=== PATIENT | female | born 1980 | race Caucasian/White ===

== ENCOUNTER 2018-07-23 12:53 | Inpatient (IN) | payer MEDICAID, OTHER ==
[~2018-07-23] VITALS: Ht 172.7 cm; Wt 117.7 kg
[~2018-07-23 12:53] MED LIST: MIDAZOLAM 1 MG/ML, 5ML ONE; PROPOFOL 10 MG/ML, 100ML IV ONE; VECURONIUM 10 MG ONE
--- NOTE | 2018-07-23 12:56 | NUR ---
[facility] CALLED @ [id number]
[2018-07-23] MEDS ORDERED: ASPIRIN 325 MG TABLET PO ONE (13:10)
--- NOTE | 2018-07-23 13:11 | NUR ---
BIB FROM [place] POST CARDIAC ARREST FROM [facility] TODAY. WAS TAKEN TO HOSPITAL IN [place] AND TRANSFERRED TO [facility]. PT HAS 8.0 ET TUBE 24@ THE LIP W/ ETCO2 AT [address] CALVERT IN [address]ACE. NG TUBE IN PLACE. RESTRAINTS IN PLACE. PT PROVIDED W/ VECURONIUM AND VERSED ON ARRIVAL. STEMI CALLED. MONITORS IN PLACE. [address] BILAT UE AND ONE IO TO L PROXIMAL SHOULDER. PT WAS FOUND DOWN AND STATES TO BE IN [place] THEN INTO V FIB. SHOCKED 3 TIMES AND GOT ROSC. AT [facility] PT WENT INTO V FIB SHOCKED AGAIN GOT ROSC. NOW HAS PINK FROTHY SPUTUM. PER SEMSA EKG SHOWS POSSIBLE ELEVATIONS IN LEADS 2,3 AND AVF. GIVEN 0.4 MG ATROPINE, STARTED ON LEVOPHED AND GIVEN [facility]. HX ETOH AND HTN.
--- NOTE | 2018-07-23 13:15 | NUR ---
ATTEMPTED TO HAVE PT OFF LEVOPHED. PT DROPPED FROM SBP 140 TO 85 IN 4 MIN. PT PLACED ON LEVOPHED AGAIN.
--- NOTE | 2018-07-23 13:21 | NUR ---
DR ZAMORA AT BEDSIDE.
[2018-07-23 13:22] LABS: MEAN CORPUSCULAR HGB CONC 32.5 g/dL (32.4-35.8); MEAN CORPUSCULAR VOLUME 92.2 fL (80-100); MEAN PLATELET VOLUME 9.1 fL (7.4-10.4); PLATELET COUNT 328 x10^3/uL (130-400); RED BLOOD COUNT 5.06 x10^6/uL (3.82-5.3)
--- NOTE | 2018-07-23 13:27 | NUR ---
CARDS AT BEDSIDE.
[2018-07-23] MEDS ORDERED: POLYETHYLENE GLYCOL 17 GM PACKET PO PRN (13:30)
[2018-07-23] MEDS ORDERED: ACETAMINOPHEN 325 MG TABLET PO PRN (13:30)
[2018-07-23] MEDS ORDERED: MIDAZOLAM 1 MG/ML, 2ML IVPush PRN (13:30)
[2018-07-23] MEDS ORDERED: BISACODYL 10 MG SUPP PR PRN (13:30)
[2018-07-23] MEDS ORDERED: OXYcodone IR 5MG TABLET PO PRN (13:30)
[2018-07-23] MEDS ORDERED: LABETALOL 5MG/ML, 20ML IVPush PRN (13:30)
[2018-07-23] MEDS ORDERED: morphine SULFATE 10 MG/ML, 1ML IVPush PRN (13:30)
[2018-07-23] MEDS ORDERED: VECURONIUM 10 MG IVPush ONE ×2 (13:30→16:30)
[2018-07-23] MEDS ORDERED: ONDANSETRON ODT 4 MG PO PRN (13:30)
[2018-07-23] MEDS ORDERED: ENALAPRILAT 1.25 MG/ML, 2ML IVPush PRN (13:30)
[2018-07-23] MEDS ORDERED: ONDANSETRON 2MG/ML, 2ML IVPush PRN (13:30)
[2018-07-23] MEDS ORDERED: LORazepam 2 MG/ML, 1ML IVPush PRN (13:30)
[2018-07-23 13:31] LABS: INTERNATIONAL NORMALIZED RATIO 1.05 (0.93-1.1)
--- NOTE | 2018-07-23 13:34 | NUR ---
ERP DR. JEFFRIES AT BEDSIDE INSERTING CENTRAL LINE.
[2018-07-23] MEDS ORDERED: MIDAZOLAM 1 MG/ML, 5ML ONE (13:37)
[2018-07-23] MEDS ORDERED: FENTANYL PF 100 MCG/2ML ONE (13:37)
[2018-07-23] MEDS ORDERED: TICAGRELOR 90 MG TABLET ONE (13:38)
[2018-07-23] MEDS ORDERED: LIDOCAINE 2%, 20ML ONE (13:38)
[2018-07-23] MEDS ORDERED: NITROGLYCERIN 5 MG/ML, 10ML ONE (13:38)
[2018-07-23] MEDS ORDERED: BIVALIRUDIN 250 MG ONE (13:38)
[2018-07-23 13:40] LABS: ALANINE AMINOTRANSFERASE 309 U/L (12-78); ALBUMIN 3.6 g/dL (3.4-5.0); ANION GAP 7 mmol/L (5-15); CALCIUM 7.5 mg/dL (8.5-10.1); CHLORIDE 109 mmol/L (98-107); CREATININE 0.98 mg/dL (0.55-1.02)
[2018-07-23 13:41] LABS: MD YES
[2018-07-23 13:42] LABS: <PLATELET ESTIMATE> ADEQUATE; <PLT MORPHOLOGY> NORMAL PLT MORPH; <RBC MORPHOLOGY> NORMAL; BAND#(MANUAL) 2.78 x10^3/uL; BANDS%(MANUAL) 8 % (0-7); LYMPH#(MANUAL) 1.04 x10^3/uL (1-3.4); LYMPHS% (MANUAL) 3 % (22-44); MONOS% (MANUAL) 2 % (2-9); SEG#(MANUAL) 30.28 x10^3/uL (1.8-6.8); SEGS% (MANUAL) 87 % (42-75)
[2018-07-23] MEDS: SODIUM CHLORIDE 0.9% 1,000 ML IV SCH ×2 (13:43→16:52)
--- NOTE | 2018-07-23 13:47 | NUR ---
ERP DR. 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 PER ERP GET BLOOD CULTURES AND START IV ANTX THEN SEND UP TO [employer].
[2018-07-23 13:51] LABS: ALKALINE PHOSPHATASE 92 U/L (45-117); BILIRUBIN,TOTAL 0.2 mg/dL (0.2-1.0); TOTAL PROTEIN 6.9 g/dL (6.4-8.2)
[2018-07-23] MEDS: PIPERACILLIN/TAZO/PMX 3.375GM 50 ML IV SCH ×2 (13:59→20:00)
[2018-07-23] MEDS ORDERED: LIDOCAINE-MPF 1%, 2ML ENDO PRN (14:00)
[2018-07-23] MEDS ORDERED: CEFTRIAXONE PMX 1GM/50ML 50 ML IVPB ONE (14:00)
[2018-07-23] MEDS ORDERED: SODIUM CHLORIDE 0.9% 1,000ML IVBOLUS ONE (14:00)
[2018-07-23] MEDS ORDERED: PROPOFOL 100 ML IV PRN (14:00)
[2018-07-23] MEDS ORDERED: PHARMACY MAY ADJ FOR RENAL FX MC SCH (14:00)
--- NOTE | 2018-07-23 14:00 | NUR ---
SPOKE W/ ERP DR. CANALES BC TAKING TOO LONG.PER ERP DR. CANALES START IV ANTX W/O BC AND HEAD TO SUPPLY PLANNER.
[2018-07-23] MEDS ORDERED: TICAGRELOR 90 MG TABLET PO/NG ONE (16:00)
[2018-07-23] MEDS ORDERED: FENTANYL PF 250 MCG in SODIUM CHLORIDE 0.9% 245 ML IV PRN (16:01)
[2018-07-23] MEDS ORDERED: NOREPINEPHRINE 4 MG in SODIUM CHLORIDE 0.9% 246 ML IV PRN (16:01)
[2018-07-23] MEDS ORDERED: SODIUM PHOSPHATE 20 MMOL in SODIUM CHLORIDE 0.9% 250 ML IVPB PRN (16:01)
[2018-07-23] MEDS ORDERED: MAGNESIUM SULFATE 1 GM in SODIUM CHLORIDE 0.9% 50 ML IVPB PRN (16:30)
[2018-07-23] MEDS: KSCALE TO 4.0 IV SCH ×2 (16:30→20:30)
[2018-07-23] MEDS ORDERED: CALCIUM CHLORIDE 13.6 MEQ in DEXTROSE 5% 100 ML IVPB PRN (16:30)
[2018-07-23 16:39] LABS: MICROSCOPIC AUTO
[2018-07-23] MEDS: LEVETIRACETAM 1,000 MG in SODIUM CHLORIDE 0.9% 100 ML IV SCH (16:46)
[2018-07-23] MEDS: LINEZOLID PMX 600MG/300ML 300 ML IV SCH (16:50)
[2018-07-23 16:57] LABS: CULTURE INDICATED? YES
[2018-07-23] MEDS ORDERED: VASOPRESSIN 100 UNIT in SODIUM CHLORIDE 0.9% 495 ML IV PRN (17:30)
[2018-07-23] MEDS: BUSPIRONE 10 MG TABLET NG SCH (17:30)
[2018-07-23] MEDS: PROPOFOL 100 ML IV PRN (18:09)
[2018-07-23 19:07] LABS: AMPHETAMINE SCREEN, URINE Negative (Negative); BARBITURATE SCREEN, URINE Negative (Negative); BENZODIAZEPINE SCREEN, URINE Positive (Negative); CANNABINOID SCREEN, URINE Negative (Negative); COCAINE SCREEN, URINE Negative (Negative); METHADONE SCREEN, URINE Negative (Negative); OPIATE SCREEN, URINE Negative (Negative)
[2018-07-23 21:00] VITALS: BP 99/40
[2018-07-23] MEDS: ARTIFICIAL TEARS OINT 3.5 GM EACHEYE SCH (21:14)
[2018-07-23] MEDS: ATORVASTATIN 80 MG TABLET PO/NG SCH (21:14)
[2018-07-23] MEDS: FAMOTIDINE 20 MG/2 ML IVPush SCH (21:14)
[2018-07-23] MEDS: VECURONIUM 10 MG IVPush PRN (22:59)
[2018-07-24] MEDS: KSCALE TO 4.0 IV SCH ×6 (00:30→20:30)
[2018-07-24] MEDS: BUSPIRONE 10 MG TABLET NG SCH ×3 (00:34→16:35)
[2018-07-24] MEDS: PIPERACILLIN/TAZO/PMX 3.375GM 50 ML IV SCH ×4 (00:42→19:32)
[2018-07-24] MEDS ORDERED: POTASSIUM CHLORIDE PMX 100 ML IV ONE ×5 (01:00→21:30)
[2018-07-24] MEDS: PROPOFOL 100 ML IV PRN ×7 (01:13→23:19)
[2018-07-24] MEDS: VECURONIUM 10 MG IVPush PRN ×3 (02:32→09:13)
[2018-07-24 04:00] VITALS: BP 127/85
[2018-07-24 04:18] LABS: MEAN CORPUSCULAR HEMOGLOBIN 30.9 pg (27.0-34.8); MEAN CORPUSCULAR HGB CONC 32.8 g/dL (32.4-35.8); MEAN CORPUSCULAR VOLUME 93.9 fL (80-100); PLATELET COUNT 259 x10^3/uL (130-400); RED BLOOD COUNT 4.31 x10^6/uL (3.82-5.3); RED CELL DISTRIBUTION WIDTH 15.4 % (9.6-15.2)
[2018-07-24 04:23] LABS: MD YES
[2018-07-24] MEDS: LEVETIRACETAM 1,000 MG in SODIUM CHLORIDE 0.9% 100 ML IV SCH ×2 (04:27→16:18)
[2018-07-24 04:29] LABS: ALANINE AMINOTRANSFERASE 231 U/L (12-78); ANION GAP 6 mmol/L (5-15); CALCIUM 7.1 mg/dL (8.5-10.1); CHLORIDE 113 mmol/L (98-107)
[2018-07-24 04:30] LABS: BAND#(MANUAL) 1.11 x10^3/uL; BANDS%(MANUAL) 4 % (0-7); LYMPH#(MANUAL) 1.67 x10^3/uL (1-3.4); LYMPHS% (MANUAL) 6 % (22-44); MONOS#(MANUAL) 1.11 x10^3/uL (0.3-2.7); MONOS% (MANUAL) 4 % (2-9); NRBC % (MANUAL) 1 % (0-1); SEG#(MANUAL) 23.91 x10^3/uL (1.8-6.8); SEGS% (MANUAL) 86 % (42-75)
[2018-07-24 04:31] LABS: <PLATELET ESTIMATE> ADEQUATE; <PLT MORPHOLOGY> NORMAL PLT MORPH; <RBC MORPHOLOGY> NORMAL
[2018-07-24] MEDS: LINEZOLID PMX 600MG/300ML 300 ML IV SCH ×2 (04:39→16:35)
[2018-07-24] MEDS: SODIUM CHLORIDE 0.9% 1,000 ML IV SCH ×2 (04:46→16:35)
[2018-07-24 04:49] LABS: ALKALINE PHOSPHATASE 64 U/L (45-117); BILIRUBIN,TOTAL 0.5 mg/dL (0.2-1.0); CHOL/HDL RATIO 2.2; CHOLESTEROL, TOTAL 139 mg/dL (140-239); HDL CHOL % 45 % (28-40); HDL CHOLESTEROL (DIRECT) 63 mg/dL (40-60); LDL CHOLESTEROL,CALCULATED 58 mg/dL (54-169); LDL/HDL RATIO 0.9 (0.5-3.0); TOTAL PROTEIN 5.8 g/dL (6.4-8.2); TRIGLYCERIDES 92 mg/dL (50-200); VLDL CHOLESTEROL 18 mg/dL (0-25)
[2018-07-24] MEDS: ARTIFICIAL TEARS OINT 3.5 GM EACHEYE SCH ×3 (04:56→21:49)
[2018-07-24] MEDS ORDERED: SCOPOLAMINE PATCH, 1.5MG PATCH.TD72 TD SCH (09:00)
[2018-07-24] MEDS ORDERED: PANTOPRAZOLE 40 MG IV IV SCH (09:00)
[2018-07-24] MEDS: FAMOTIDINE 20 MG/2 ML IVPush SCH ×2 (09:13→21:48)
[2018-07-24] MEDS: ASPIRIN 81 MG TABLET CHEW PO/NG SCH (09:13)
[2018-07-24] MEDS: SENNA/DOCUSATE TABLET PO SCH (09:14)
[2018-07-24] MEDS: TICAGRELOR 90 MG TABLET PO SCH ×2 (09:14→21:48)
[2018-07-24] MEDS: ENOXAPARIN 40 MG/0.4 ML SQ SCH (09:14)
[2018-07-24] MEDS: NOREPINEPHRINE 8 MG in SODIUM CHLORIDE 0.9% 242 ML IV PRN (13:08)
[2018-07-24] MEDS: MIDAZOLAM 1 MG/ML, 2ML IVPush PRN ×2 (14:19→15:18)
[2018-07-24] MEDS ORDERED: MIDAZOLAM 1 MG/ML, 5ML ONE (16:58)
[2018-07-24] MEDS ORDERED: MIDAZOLAM 1 MG/ML, 5ML IVPush ONE (17:00)
[2018-07-24] MEDS: MIDAZOLAM HCL 25 MG in SODIUM CHLORIDE 0.9% 245 ML IV PRN (17:14)
[2018-07-24] MEDS: ATORVASTATIN 80 MG TABLET PO/NG SCH (21:48)
[2018-07-25] MEDS: BUSPIRONE 10 MG TABLET NG SCH ×3 (00:20→16:30)
[2018-07-25] MEDS: KSCALE TO 4.0 IV SCH ×6 (00:30→20:30)
[2018-07-25] MEDS: MIDAZOLAM HCL 25 MG in SODIUM CHLORIDE 0.9% 245 ML IV PRN ×3 (01:05→22:36)
[2018-07-25] MEDS ORDERED: POTASSIUM CHLORIDE PMX 100 ML IV ONE ×5 (01:30→17:00)
[2018-07-25] MEDS: PIPERACILLIN/TAZO/PMX 3.375GM 50 ML IV SCH ×4 (01:43→20:31)
[2018-07-25] MEDS: PROPOFOL 100 ML IV PRN ×5 (01:56→23:24)
[2018-07-25 04:00] VITALS: BP 133/77
[2018-07-25] MEDS: LEVETIRACETAM 1,000 MG in SODIUM CHLORIDE 0.9% 100 ML IV SCH ×2 (04:26→22:30)
[2018-07-25 04:33] LABS: MEAN CORPUSCULAR HGB CONC 33.1 g/dL (32.4-35.8); MEAN CORPUSCULAR VOLUME 93.8 fL (80-100); MEAN PLATELET VOLUME 9.4 fL (7.4-10.4); PLATELET COUNT 227 x10^3/uL (130-400); RED CELL DISTRIBUTION WIDTH 15.6 % (9.6-15.2)
[2018-07-25 04:42] LABS: ALANINE AMINOTRANSFERASE 157 U/L (12-78); ALBUMIN 2.6 g/dL (3.4-5.0); ANION GAP 4 mmol/L (5-15); CALCIUM 7.4 mg/dL (8.5-10.1); CHLORIDE 118 mmol/L (98-107)
[2018-07-25 04:44] LABS: ALKALINE PHOSPHATASE 57 U/L (45-117); BILIRUBIN,TOTAL 0.4 mg/dL (0.2-1.0); TOTAL PROTEIN 5.4 g/dL (6.4-8.2)
[2018-07-25] MEDS: LINEZOLID PMX 600MG/300ML 300 ML IV SCH ×2 (04:51→17:05)
[2018-07-25] MEDS: ARTIFICIAL TEARS OINT 3.5 GM EACHEYE SCH ×2 (04:51→12:30)
[2018-07-25] MEDS: SODIUM CHLORIDE 0.9% 1,000 ML IV SCH (05:11)
[2018-07-25 05:43] LABS: BASOPHILS # (AUTO) 0.02 x10^3/uL (0-0.1); BASOPHILS % (AUTO) 0 % (0-1); EOSINOPHILS # (AUTO) 0.04 x10^3/uL (0-0.4); EOSINOPHILS % (AUTO) 0 % (1-7); LYMPHOCYTES # (AUTO) 1.49 x10^3/uL (1-3.4); LYMPHOCYTES % (AUTO) 8 % (22-44); MD SCAN; MONOCYTES # (AUTO) 0.67 x10^3/uL (0.2-0.8); MONOCYTES % (AUTO) 4 % (2-9); NEUTROPHILS # (AUTO) 16.57 x10^3/uL (1.8-6.8); NEUTROPHILS % (AUTO) 88 % (42-75)
[2018-07-25] MEDS: NOREPINEPHRINE 8 MG in SODIUM CHLORIDE 0.9% 242 ML IV PRN (07:16)
[2018-07-25] MEDS: ASPIRIN 81 MG TABLET CHEW PO/NG SCH (07:35)
[2018-07-25] MEDS: FAMOTIDINE 20 MG/2 ML IVPush SCH ×2 (07:35→21:49)
[2018-07-25] MEDS: ENOXAPARIN 40 MG/0.4 ML SQ SCH (07:36)
[2018-07-25] MEDS: TICAGRELOR 90 MG TABLET PO SCH ×2 (07:36→21:48)
[2018-07-25] MEDS ORDERED: CALCIUM GLUCONATE IVPB PRN (11:00)
[2018-07-25] MEDS ORDERED: DEXTROSE 5% IVPB PRN (11:00)
[2018-07-25] MEDS ORDERED: AMIODARONE 150 MG in DEXTROSE 5% 100 ML IV ONE (11:30)
[2018-07-25] MEDS ORDERED: AMIODARONE 900 MG in DEXTROSE 5% 482 ML IV PRN (11:30)
[2018-07-25] MEDS ORDERED: FILTER 0.22 MICRON IV PRN (12:00)
[2018-07-25] MEDS ORDERED: LEVETIRACETAM 500 MG in SODIUM CHLORIDE 0.9% 100 ML IV STA (16:06)
[2018-07-25] MEDS ORDERED: LEVETIRACETAM 2,000 MG in SODIUM CHLORIDE 0.9% 100 ML IV ONE (16:30)
[2018-07-25] MEDS ORDERED: THIAMINE 200 MG in SODIUM CHLORIDE 0.9% 50 ML IV ONE (21:30)
[2018-07-25] MEDS ORDERED: MIDAZOLAM 1 MG/ML, 5ML IVPush ONE (21:30)
[2018-07-25] MEDS: SENNA/DOCUSATE TABLET PO SCH (21:48)
[2018-07-25] MEDS: ATORVASTATIN 80 MG TABLET PO/NG SCH (21:49)
[2018-07-26] MEDS: KSCALE TO 4.0 IV SCH ×5 (00:30→16:26)
[2018-07-26] MEDS: BUSPIRONE 10 MG TABLET NG SCH ×2 (00:41→08:30)
[2018-07-26] MEDS: PIPERACILLIN/TAZO/PMX 3.375GM 50 ML IV SCH ×4 (01:03→19:58)
[2018-07-26] MEDS: PROPOFOL 100 ML IV PRN ×6 (03:02→20:45)
[2018-07-26] MEDS: MIDAZOLAM HCL 25 MG in SODIUM CHLORIDE 0.9% 245 ML IV PRN ×4 (03:18→21:28)
[2018-07-26 04:00] VITALS: BP 104/86
[2018-07-26] MEDS: LINEZOLID PMX 600MG/300ML 300 ML IV SCH ×2 (05:07→16:57)
[2018-07-26] MEDS ORDERED: THIAMINE IV SCH (09:00)
[2018-07-26] MEDS ORDERED: SODIUM CHLORIDE 0.9% IV SCH (09:00)
[2018-07-26] MEDS ORDERED: FOLIC ACID IV SCH (09:00)
[2018-07-26] MEDS ORDERED: MVI ADULT IV SCH (09:00)
[2018-07-26] MEDS ORDERED: LORazepam 2 MG/ML, 1ML IVPush PRN (09:30)
[2018-07-26] MEDS: LEVETIRACETAM 1,000 MG in SODIUM CHLORIDE 0.9% 100 ML IV SCH ×2 (09:36→20:44)
[2018-07-26] MEDS: ENOXAPARIN 40 MG/0.4 ML SQ SCH (09:36)
[2018-07-26] MEDS: FAMOTIDINE 20 MG/2 ML IVPush SCH ×2 (09:36→20:39)
[2018-07-26] MEDS: SENNA/DOCUSATE TABLET PO SCH (09:37)
[2018-07-26] MEDS: TICAGRELOR 90 MG TABLET PO SCH ×2 (09:37→20:39)
[2018-07-26] MEDS: AMIODARONE 200 MG TABLET PO SCH ×2 (09:37→20:40)
[2018-07-26] MEDS: ASPIRIN 81 MG TABLET CHEW PO/NG SCH (09:37)
[2018-07-26] MEDS ORDERED: SODIUM CHLORIDE 0.9% 1,000 ML IV SCH (13:21)
[2018-07-26] MEDS: ATORVASTATIN 80 MG TABLET PO/NG SCH (20:39)
[2018-07-26] MEDS ORDERED: THIAMINE 200 MG in SODIUM CHLORIDE 0.9% 50 ML IV SCH (22:00)
[2018-07-27] MEDS: PROPOFOL 100 ML IV PRN ×2 (01:11→08:02)
[2018-07-27] MEDS: PIPERACILLIN/TAZO/PMX 3.375GM 50 ML IV SCH ×2 (01:11→08:33)
[2018-07-27 04:00] VITALS: BP 146/73
[2018-07-27] MEDS: MIDAZOLAM HCL 25 MG in SODIUM CHLORIDE 0.9% 245 ML IV PRN ×2 (04:04→10:19)
[2018-07-27] MEDS: LINEZOLID PMX 600MG/300ML 300 ML IV SCH (04:16)
[2018-07-27] MEDS: SENNA/DOCUSATE TABLET PO SCH (09:00)
[2018-07-27] MEDS: ASPIRIN 81 MG TABLET CHEW PO/NG SCH (10:59)
[2018-07-27] MEDS: TICAGRELOR 90 MG TABLET PO SCH (10:59)
[2018-07-27] MEDS: FAMOTIDINE 20 MG/2 ML IVPush SCH (11:00)
[2018-07-27] MEDS: ENOXAPARIN 40 MG/0.4 ML SQ SCH (11:00)
[2018-07-27] MEDS: AMIODARONE 200 MG TABLET PO SCH (11:00)
[2018-07-27] MEDS: LEVETIRACETAM 1,000 MG in SODIUM CHLORIDE 0.9% 100 ML IV SCH (11:05)
[2018-07-29 05:16] LABS: BASOPHILS # (AUTO) 0.02 x10^3/uL (0-0.1); BASOPHILS % (AUTO) 0 % (0-1); EOSINOPHILS # (AUTO) 0.12 x10^3/uL (0-0.4); EOSINOPHILS % (AUTO) 2 % (1-7); LYMPHOCYTES # (AUTO) 1.26 x10^3/uL (1-3.4); LYMPHOCYTES % (AUTO) 20 % (22-44); MD NO; MEAN CORPUSCULAR HEMOGLOBIN 30.1 pg (27.0-34.8); MEAN CORPUSCULAR HGB CONC 32.6 g/dL (32.4-35.8); MEAN CORPUSCULAR VOLUME 92.5 fL (80-100); MEAN PLATELET VOLUME 7.7 fL (7.4-10.4); MONOCYTES # (AUTO) 1.03 x10^3/uL (0.2-0.8); MONOCYTES % (AUTO) 16 % (2-9); NEUTROPHILS # (AUTO) 3.97 x10^3/uL (1.8-6.8); NEUTROPHILS % (AUTO) 62 % (42-75); PLATELET COUNT 249 x10^3/uL (130-400); RED BLOOD COUNT 3.24 x10^6/uL (3.82-5.3); RED CELL DISTRIBUTION WIDTH 16.1 % (9.6-15.2)
== END 2018-07-27 10:47 | disposition hospice, home (50) | DRG 853 ==
LOC: ED 13:09 → EDIP 13:10 → ED 13:40 → CCU 14:37 → 4EST 15:22 → CCU 15:30 → DCLOUNGE 07-27 10:38 → UNDODISIN 07-27 10:47 → DCLOUNGE 07-28 17:58
PROVIDERS: ADMIT Internal Medicine; ATTEND Internal Medicine
PROC: 02703DZ Dilation of Coronary Artery, One Artery with Intraluminal Device, Percutaneous Approach (ICD-10-PCS; principal; 2018-07-23)
PROC: 02HV33Z Insertion of Infusion Device into Superior Vena Cava, Percutaneous Approach (ICD-10-PCS; 2018-07-23)
PROC: 4A023N7 Measurement of Cardiac Sampling and Pressure, Left Heart, Percutaneous Approach (ICD-10-PCS; 2018-07-23)
PROC: B2111ZZ Fluoroscopy of Multiple Coronary Arteries using Low Osmolar Contrast (ICD-10-PCS; 2018-07-23)
PROC: B2151ZZ Fluoroscopy of Left Heart using Low Osmolar Contrast (ICD-10-PCS; 2018-07-23)
PROC: 5A1955Z Respiratory Ventilation, Greater than 96 Consecutive Hours (ICD-10-PCS; 2018-07-23)
PROC: 0BH17EZ Insertion of Endotracheal Airway into Trachea, Via Natural or Artificial Opening (ICD-10-PCS; 2018-07-23)
PROC: 03HY32Z Insertion of Monitoring Device into Upper Artery, Percutaneous Approach (ICD-10-PCS; 2018-07-27)
PROC: 4A133B1 Monitoring of Arterial Pressure, Peripheral, Percutaneous Approach (ICD-10-PCS; 2018-07-27)
PROC: 4A133J1 Monitoring of Arterial Pulse, Peripheral, Percutaneous Approach (ICD-10-PCS; 2018-07-27)
DX: A41.9 Sepsis, unspecified organism (principal); I49.01 Ventricular fibrillation; J96.01 Acute respiratory failure with hypoxia; R57.0 Cardiogenic shock; I50.31 Acute diastolic (congestive) heart failure; J18.9 Pneumonia, unspecified organism; Z99.11 Dependence on respirator [ventilator] status; G93.1 Anoxic brain damage, not elsewhere classified; F10.239 Alcohol dependence with withdrawal, unspecified; I47.2 Ventricular tachycardia; N39.0 Urinary tract infection, site not specified; I11.0 Hypertensive heart disease with heart failure; R73.9 Hyperglycemia, unspecified; G40.901 Epilepsy, unspecified, not intractable, with status epilepticus; I25.10 Atherosclerotic heart disease of native coronary artery without angina pectoris; I25.82 Chronic total occlusion of coronary artery; Z51.5 Encounter for palliative care; Z87.891 Personal history of nicotine dependence
CPT/HCPCS: 36415; 36556; 36600; 92973; 93458; 99291; C9600; J3490; 70551; 71045; 80047; 80053; 80061; 80307; 81001; 82330; 82803; 82962; 83605; 83735; 84100; 84132; 84443; 84478; 84484; 85025; 85610; 85730; 86900; 87040; 87070; 87077; 87081; 87086; 87186; 87205; 93005; 93306; 94002; 94003; 95951; 96374; 96375; 99156; 99157; C1769; C1876; C1894; G0378; J0583; J1650; J1953; J2020; J2250; J2543; J2704; J3010; J3411; J3475; J3480; C1725; C1757; C1887; J0282; J0610; J2060; J7030; J7050; J7060; Q9967

== ENCOUNTER 2018-07-27 09:46 | Inpatient (IN) | payer OTHER ==
[2018-07-26 04:45] LABS: BASOPHILS # (AUTO) 0.03 x10^3/uL (0-0.1); BASOPHILS % (AUTO) 0 % (0-1); EOSINOPHILS # (AUTO) 0.02 x10^3/uL (0-0.4); EOSINOPHILS % (AUTO) 0 % (1-7); LYMPHOCYTES # (AUTO) 1.09 x10^3/uL (1-3.4); LYMPHOCYTES % (AUTO) 10 % (22-44); MD NO; MEAN CORPUSCULAR HEMOGLOBIN 31.2 pg (27.0-34.8); MEAN CORPUSCULAR HGB CONC 33.4 g/dL (32.4-35.8); MEAN CORPUSCULAR VOLUME 93.4 fL (80-100); MONOCYTES % (AUTO) 5 % (2-9); NEUTROPHILS # (AUTO) 9.31 x10^3/uL (1.8-6.8); NEUTROPHILS % (AUTO) 85 % (42-75); PLATELET COUNT 210 x10^3/uL (130-400); RED BLOOD COUNT 3.29 x10^6/uL (3.82-5.3); RED CELL DISTRIBUTION WIDTH 15.6 % (9.6-15.2)
[~2018-07-27] VITALS: Ht 172.7 cm; Wt 91.3 kg
[2018-07-27 05:27] LABS: BASOPHILS # (AUTO) 0.02 x10^3/uL (0-0.1); BASOPHILS % (AUTO) 0 % (0-1); EOSINOPHILS # (AUTO) 0.04 x10^3/uL (0-0.4); EOSINOPHILS % (AUTO) 1 % (1-7); LYMPHOCYTES # (AUTO) 1.04 x10^3/uL (1-3.4); LYMPHOCYTES % (AUTO) 12 % (22-44); MD NO; MEAN CORPUSCULAR HEMOGLOBIN 31.1 pg (27.0-34.8); MEAN CORPUSCULAR HGB CONC 33.5 g/dL (32.4-35.8); MEAN CORPUSCULAR VOLUME 92.8 fL (80-100); MEAN PLATELET VOLUME 9.4 fL (7.4-10.4); MONOCYTES # (AUTO) 0.46 x10^3/uL (0.2-0.8); MONOCYTES % (AUTO) 5 % (2-9); NEUTROPHILS # (AUTO) 7.02 x10^3/uL (1.8-6.8); NEUTROPHILS % (AUTO) 82 % (42-75); PLATELET COUNT 210 x10^3/uL (130-400)
[2018-07-27 05:38] LABS: ALANINE AMINOTRANSFERASE 71 U/L (12-78); ALBUMIN 2.3 g/dL (3.4-5.0); ANION GAP 6 mmol/L (5-15); CHLORIDE 111 mmol/L (98-107)
[2018-07-27 05:41] LABS: ALKALINE PHOSPHATASE 60 U/L (45-117); BILIRUBIN,TOTAL 0.4 mg/dL (0.2-1.0); TOTAL PROTEIN 5.1 g/dL (6.4-8.2)
[2018-07-27] MEDS ORDERED: PHARMACY MAY ADJ FOR RENAL FX MC SCH (11:30)
[2018-07-27] MEDS ORDERED: GLUCAGON 1 MG IM PRN (11:30)
[2018-07-27] MEDS ORDERED: LACTULOSE 20 GM/30 ML UDC NG PRN (11:30)
[2018-07-27] MEDS ORDERED: LIDOCAINE-MPF 1%, 2ML ENDO PRN (11:30)
[2018-07-27] MEDS ORDERED: ALBUTEROL SULFATE 2.5 MG/3 ML INLINE SCH (11:30)
[2018-07-27] MEDS ORDERED: FENTANYL PF 100 MCG/2ML IVPush PRN (11:30)
[2018-07-27] MEDS: FAMOTIDINE 20 MG/2 ML IV SCH ×2 (11:30→23:53)
[2018-07-27] MEDS ORDERED: DEXTROSE 50%, 50ML SYRINGE IVPush PRN (11:30)
[2018-07-27] MEDS ORDERED: BISACODYL 10 MG SUPP PR PRN (11:30)
[2018-07-27] MEDS ORDERED: DEXTROSE 4 GM TAB.CHEW PO PRN (11:30)
[2018-07-27] MEDS ORDERED: SENNA/DOCUSATE TABLET NG PRN (11:30)
[2018-07-27] MEDS ORDERED: SENNA 176 MG/5 ML ORAL SOL NG PRN (11:30)
[2018-07-27] MEDS: PLEASE ENTER HEIGHT AND WEIGHT MC SCH ×2 (12:00→16:47)
[2018-07-27] MEDS ORDERED: PROPOFOL 100 ML IV ONE (12:04)
[2018-07-27] MEDS: KSCALE TO 4.0 IV SCH ×2 (14:00→18:00)
[2018-07-27] MEDS ORDERED: MAGNESIUM SULFATE 1 GM in SODIUM CHLORIDE 0.9% 50 ML IVPB PRN (14:00)
[2018-07-27] MEDS ORDERED: LIDOCAINE 1%, 2ML ENDO PRN (14:00)
[2018-07-27] MEDS ORDERED: CALCIUM CHLORIDE 13.6 MEQ in DEXTROSE 5% 100 ML IVPB PRN (14:00)
[2018-07-27] MEDS ORDERED: PHARMACY MAY ADJ FOR RENAL FX MC PRN (14:00)
[2018-07-27] MEDS ORDERED: PIPERACILLIN/TAZO/PMX 3.375GM 50 ML IV SCH (14:30)
[2018-07-27] MEDS: CEFTRIAXONE PMX 1GM/50ML 50 ML IV SCH (15:27)
[2018-07-27] MEDS: INSULIN LISPRO 100 UNITS/ML, PEN SQ-INSULIN SCH ×2 (16:00→21:00)
[2018-07-27] MEDS: MIDAZOLAM HCL 25 MG in SODIUM CHLORIDE 0.9% 245 ML IV PRN ×2 (16:41→23:22)
[2018-07-27] MEDS: LABETALOL 5MG/ML, 20ML IVPush PRN ×2 (19:46→23:53)
[2018-07-27] MEDS: TICAGRELOR 90 MG TABLET PO SCH (21:00)
[2018-07-27] MEDS: hydrALAzine 20 MG/ML, 1ML IV PRN ×2 (21:00→23:53)
[2018-07-27] MEDS: AMIODARONE 200 MG TABLET PO SCH (21:00)
[2018-07-27] MEDS: SODIUM CHLORIDE FLUSH 10ML SYR IVF SCH (21:00)
[2018-07-27] MEDS: PROPOFOL 100 ML IV PRN (21:56)
[2018-07-27] MEDS: LEVETIRACETAM 1,000 MG in SODIUM CHLORIDE 0.9% 100 ML IV SCH (23:21)
[2018-07-28] MEDS: NOREPINEPHRINE 4 MG in SODIUM CHLORIDE 0.9% 246 ML IV PRN ×2 (01:20→11:18)
[2018-07-28] MEDS: PROPOFOL 100 ML IV PRN ×2 (01:20→05:44)
[2018-07-28 01:24] LABS: RAPID INFLUENZA A Negative (Negative); RAPID INFLUENZA B Negative (Negative)
[2018-07-28] MEDS: PLEASE ENTER HEIGHT AND WEIGHT MC SCH (04:00)
[2018-07-28] MEDS: MIDAZOLAM HCL 25 MG in SODIUM CHLORIDE 0.9% 245 ML IV PRN (04:41)
[2018-07-28] MEDS ORDERED: DESMOPRESSIN 4 MCG/ML IVPush ONE ×2 (05:30→12:00)
[2018-07-28 05:39] LABS: BASOPHILS # (AUTO) 0.03 x10^3/uL (0-0.1); BASOPHILS % (AUTO) 0 % (0-1); EOSINOPHILS # (AUTO) 0.05 x10^3/uL (0-0.4); EOSINOPHILS % (AUTO) 1 % (1-7); LYMPHOCYTES # (AUTO) 1.18 x10^3/uL (1-3.4); LYMPHOCYTES % (AUTO) 14 % (22-44); MD NO; MEAN CORPUSCULAR HEMOGLOBIN 31.1 pg (27.0-34.8); MEAN CORPUSCULAR HGB CONC 33.2 g/dL (32.4-35.8); MEAN CORPUSCULAR VOLUME 93.7 fL (80-100); MEAN PLATELET VOLUME 8.9 fL (7.4-10.4); MONOCYTES # (AUTO) 0.41 x10^3/uL (0.2-0.8); MONOCYTES % (AUTO) 5 % (2-9); NEUTROPHILS # (AUTO) 7.01 x10^3/uL (1.8-6.8); NEUTROPHILS % (AUTO) 81 % (42-75); PLATELET COUNT 293 x10^3/uL (130-400); RED BLOOD COUNT 3.18 x10^6/uL (3.82-5.3); RED CELL DISTRIBUTION WIDTH 16.3 % (9.6-15.2)
[2018-07-28 05:47] LABS: ALANINE AMINOTRANSFERASE 56 U/L (12-78); ALBUMIN 2.4 g/dL (3.4-5.0); ANION GAP 5 mmol/L (5-15); CALCIUM 8.4 mg/dL (8.5-10.1); CHLORIDE 121 mmol/L (98-107); CREATININE 0.58 mg/dL (0.55-1.02)
[2018-07-28 05:49] LABS: ALKALINE PHOSPHATASE 67 U/L (45-117); BILIRUBIN,TOTAL 0.3 mg/dL (0.2-1.0); TOTAL PROTEIN 5.4 g/dL (6.4-8.2)
[2018-07-28 06:34] LABS: MICROSCOPIC NOT IND
[2018-07-28 06:42] LABS: CHLORIDE,URINE RANDOM 16 mmol/L; SODIUM,URINE RANDOM 20 mmol/L
[2018-07-28 06:44] LABS: POTASSIUM,URINE RANDOM < 1 mmol/L
[2018-07-28] MEDS: INSULIN LISPRO 100 UNITS/ML, PEN SQ-INSULIN SCH ×4 (07:00→20:39)
[2018-07-28 07:15] LABS: OSMOLALITY,URINE 55 mOsm/kg (500-850)
[2018-07-28 08:51] LABS: BILIRUBIN, DIRECT < 0.1 mg/dL (0.1-0.2); BILIRUBIN,INDIRECT 0.2 mg/dL (0.0-2.0); BILIRUBIN,TOTAL 0.3 mg/dL (0.2-1.0)
[2018-07-28 08:53] LABS: INTERNATIONAL NORMALIZED RATIO 0.88 (0.93-1.1); PROTHROMBIN TIME 9.3 Seconds (9.6-11.5)
[2018-07-28] MEDS: AMIODARONE 200 MG TABLET PO SCH ×2 (09:58→20:36)
[2018-07-28] MEDS: TICAGRELOR 90 MG TABLET PO SCH ×2 (09:58→20:33)
[2018-07-28] MEDS: SODIUM CHLORIDE FLUSH 10ML SYR IVF SCH ×2 (09:58→20:33)
[2018-07-28 10:33] LABS: ALBUMIN 2.3 g/dL (3.4-5.0); ANION GAP 6 mmol/L (5-15); CALCIUM 8.3 mg/dL (8.5-10.1); CHLORIDE 121 mmol/L (98-107)
[2018-07-28] MEDS: FAMOTIDINE 20 MG/2 ML IV SCH ×2 (10:58→22:52)
[2018-07-28] MEDS: LEVETIRACETAM 1,000 MG in SODIUM CHLORIDE 0.9% 100 ML IV SCH ×2 (10:58→22:52)
[2018-07-28] MEDS: CEFTRIAXONE PMX 1GM/50ML 50 ML IV SCH (11:18)
[2018-07-28] MEDS: hydrALAzine 20 MG/ML, 1ML IV PRN (12:42)
[2018-07-28] MEDS: LABETALOL 5MG/ML, 20ML IVPush PRN ×2 (12:48→15:26)
[2018-07-28 14:45] LABS: ALBUMIN 2.5 g/dL (3.4-5.0); ANION GAP 5 mmol/L (5-15); CALCIUM 8.3 mg/dL (8.5-10.1); CHLORIDE 120 mmol/L (98-107); CREATININE 0.52 mg/dL (0.55-1.02)
[2018-07-28] MEDS ORDERED: DESMOPRESSIN 4 MCG/ML IVPush PRN (19:30)
[2018-07-28 20:05] LABS: ALBUMIN 2.4 g/dL (3.4-5.0); ANION GAP 5 mmol/L (5-15); CALCIUM 8.4 mg/dL (8.5-10.1); CHLORIDE 119 mmol/L (98-107); CREATININE 0.59 mg/dL (0.55-1.02)
[2018-07-29 00:09] LABS: ALBUMIN 2.3 g/dL (3.4-5.0); ANION GAP 4 mmol/L (5-15); CALCIUM 8.3 mg/dL (8.5-10.1); CHLORIDE 118 mmol/L (98-107); CREATININE 0.68 mg/dL (0.55-1.02)
[2018-07-29] MEDS ORDERED: POTASSIUM CHLORIDE PMX 100 ML IV ONE ×2 (00:30→06:00)
[2018-07-29] MEDS: KSCALE TO 4.0 IV SCH ×4 (00:34→16:42)
[2018-07-29 05:26] LABS: ANION GAP 5 mmol/L (5-15); CALCIUM 8.3 mg/dL (8.5-10.1); CHLORIDE 119 mmol/L (98-107); CREATININE 0.58 mg/dL (0.55-1.02)
[2018-07-29 05:27] LABS: ALBUMIN 2.2 g/dL (3.4-5.0)
[2018-07-29] MEDS: INSULIN LISPRO 100 UNITS/ML, PEN SQ-INSULIN SCH (06:30)
[2018-07-29 09:30] LABS: ALBUMIN 2.2 g/dL (3.4-5.0); ANION GAP 4 mmol/L (5-15); CALCIUM 8.5 mg/dL (8.5-10.1); CHLORIDE 122 mmol/L (98-107)
[2018-07-29] MEDS ORDERED: POTASSIUM CHLORIDE 10% 40 MEQ/30 ML UDC PO ONE (09:30)
[2018-07-29 09:35] LABS: BILIRUBIN,TOTAL 0.6 mg/dL (0.2-1.0); CREATININE 0.62 mg/dL (0.55-1.02)
[2018-07-29 09:36] LABS: BILIRUBIN, DIRECT < 0.1 mg/dL (0.1-0.2); BILIRUBIN,INDIRECT 0.5 mg/dL (0.0-2.0)
[2018-07-29] MEDS ORDERED: EPINEPHRINE 1 MG/ML, 1ML IV PRN (10:00)
[2018-07-29 10:01] LABS: INTERNATIONAL NORMALIZED RATIO 0.91 (0.93-1.1); PROTHROMBIN TIME 9.6 Seconds (9.6-11.5)
[2018-07-29] MEDS: AMIODARONE 200 MG TABLET PO SCH (10:10)
[2018-07-29] MEDS: TICAGRELOR 90 MG TABLET PO SCH (10:10)
[2018-07-29] MEDS: FAMOTIDINE 20 MG/2 ML IV SCH (10:11)
[2018-07-29] MEDS: SODIUM CHLORIDE FLUSH 10ML SYR IVF SCH (10:29)
[2018-07-29] MEDS ORDERED: POTASSIUM CHLORIDE 30 MEQ in SODIUM CHLORIDE 0.9% 100 ML IV ONE (10:30)
[2018-07-29] MEDS: CEFTRIAXONE PMX 1GM/50ML 50 ML IV SCH (12:55)
[2018-07-29] MEDS ORDERED: SODIUM PHOSPHATE 20 MMOL in SODIUM CHLORIDE 0.9% 250 ML IVPB PRN (13:06)
[2018-07-29] MEDS ORDERED: MAGNESIUM SULFATE 1 GM in SODIUM CHLORIDE 0.9% 50 ML IVPB PRN (13:30)
[2018-07-29] MEDS ORDERED: PHARMACY MAY ADJ FOR RENAL FX MC PRN (13:30)
[2018-07-29] MEDS ORDERED: CALCIUM CHLORIDE 13.6 MEQ in DEXTROSE 5% 100 ML IVPB PRN (13:30)
[2018-07-29] MEDS ORDERED: LIDOCAINE 1%, 2ML ENDO PRN (13:30)
[2018-07-29 14:04] LABS: BASOPHILS # (AUTO) 0.05 x10^3/uL (0-0.1); BASOPHILS % (AUTO) 1 % (0-1); EOSINOPHILS # (AUTO) 0.15 x10^3/uL (0-0.4); EOSINOPHILS % (AUTO) 2 % (1-7); LYMPHOCYTES # (AUTO) 1.43 x10^3/uL (1-3.4); LYMPHOCYTES % (AUTO) 16 % (22-44); MD NO; MEAN CORPUSCULAR HEMOGLOBIN 31.2 pg (27.0-34.8); MEAN CORPUSCULAR HGB CONC 33.5 g/dL (32.4-35.8); MEAN CORPUSCULAR VOLUME 93.4 fL (80-100); MEAN PLATELET VOLUME 7.9 fL (7.4-10.4); MONOCYTES # (AUTO) 1.23 x10^3/uL (0.2-0.8); MONOCYTES % (AUTO) 14 % (2-9); NEUTROPHILS # (AUTO) 5.98 x10^3/uL (1.8-6.8); NEUTROPHILS % (AUTO) 68 % (42-75); PLATELET COUNT 255 x10^3/uL (130-400); RED BLOOD COUNT 3.31 x10^6/uL (3.82-5.3); RED CELL DISTRIBUTION WIDTH 15.7 % (9.6-15.2)
[2018-07-29 14:08] LABS: INTERNATIONAL NORMALIZED RATIO 0.94 (0.93-1.1); PROTHROMBIN TIME 9.9 Seconds (9.6-11.5)
[2018-07-29 14:10] LABS: ALBUMIN 2.2 g/dL (3.4-5.0); ANION GAP 4 mmol/L (5-15); CALCIUM 8.7 mg/dL (8.5-10.1); CHLORIDE 123 mmol/L (98-107); CREATININE 0.76 mg/dL (0.55-1.02)
[2018-07-29 14:14] LABS: ALBUMIN 2.1 g/dL (3.4-5.0); ANION GAP 5 mmol/L (5-15); CALCIUM 8.5 mg/dL (8.5-10.1); CHLORIDE 123 mmol/L (98-107)
[2018-07-29 14:17] LABS: BILIRUBIN, DIRECT 0.1 mg/dL (0.1-0.2); CREATININE 0.67 mg/dL (0.55-1.02)
[2018-07-29 14:19] LABS: ALANINE AMINOTRANSFERASE 35 U/L (12-78); ALKALINE PHOSPHATASE 64 U/L (45-117); BILIRUBIN,INDIRECT 0.2 mg/dL (0.0-2.0); BILIRUBIN,TOTAL 0.3 mg/dL (0.2-1.0); TOTAL PROTEIN 5.6 g/dL (6.4-8.2)
[2018-07-29 14:20] LABS: MICROSCOPIC INDICATED
[2018-07-29] MEDS ORDERED: POTASSIUM CHLORIDE 40 MEQ in SODIUM CHLORIDE 0.9% 100 ML IV ONE (14:30)
[2018-07-29] MEDS ORDERED: POTASSIUM CHLORIDE 40 MEQ in SODIUM CHLORIDE 0.9% 100 ML IV PRN (14:30)
[2018-07-29] MEDS ORDERED: MAGNESIUM SULFATE PMX 4GM/100M 100 ML IVPB PRN (14:30)
[2018-07-29] MEDS ORDERED: POTASSIUM CHLORIDE 20 MEQ in SODIUM CHLORIDE 0.45% 1,000 ML IV SCH (14:30)
[2018-07-29] MEDS ORDERED: POTASSIUM PHOSPHATE 22 MEQ in SODIUM CHLORIDE 0.9% 500 ML IV ONE (14:30)
[2018-07-29] MEDS: PIPERACILLIN/TAZO 3.375 GM in SODIUM CHLORIDE 0.9% 50 ML IVPB SCH ×2 (14:34→22:42)
[2018-07-29 14:39] LABS: HEMOGLOBIN A1C 5.1 % (4.2-6.3)
[2018-07-29] MEDS: POTASSIUM CHLORIDE 20 MEQ in D5%-0.2% NACL 1,000 ML IV SCH (14:47)
[2018-07-29] MEDS: LEVOTHYROXINE 200 MCG in SODIUM CHLORIDE 0.9% 500 ML IV SCH (14:55)
[2018-07-29] MEDS: METHYLPREDNISOLONE SOD SUCC IV SCH (15:11)
[2018-07-29] MEDS: DEXTROSE 5% IV SCH (15:11)
[2018-07-29] MEDS: CALCIUM CHLORIDE 13.6 MEQ in SODIUM CHLORIDE 0.9% 50 ML IV PRN (16:24)
[2018-07-29 20:37] LABS: BASOPHILS % (AUTO) 0 % (0-1); EOSINOPHILS # (AUTO) 0.03 x10^3/uL (0-0.4); EOSINOPHILS % (AUTO) 0 % (1-7); LYMPHOCYTES # (AUTO) 0.41 x10^3/uL (1-3.4); LYMPHOCYTES % (AUTO) 5 % (22-44); MD NO; MEAN CORPUSCULAR HEMOGLOBIN 30.7 pg (27.0-34.8); MEAN CORPUSCULAR VOLUME 93.2 fL (80-100); MEAN PLATELET VOLUME 8.2 fL (7.4-10.4); MONOCYTES # (AUTO) 0.41 x10^3/uL (0.2-0.8); MONOCYTES % (AUTO) 5 % (2-9); NEUTROPHILS # (AUTO) 8.11 x10^3/uL (1.8-6.8); NEUTROPHILS % (AUTO) 91 % (42-75); PLATELET COUNT 227 x10^3/uL (130-400); RED BLOOD COUNT 3.33 x10^6/uL (3.82-5.3); RED CELL DISTRIBUTION WIDTH 15.9 % (9.6-15.2)
[2018-07-29 20:39] LABS: ALANINE AMINOTRANSFERASE 34 U/L (12-78); ALBUMIN 2.2 g/dL (3.4-5.0); ANION GAP 5 mmol/L (5-15); BILIRUBIN, DIRECT 0.2 mg/dL (0.1-0.2); CHLORIDE 121 mmol/L (98-107); CREATININE 0.67 mg/dL (0.55-1.02)
[2018-07-29 20:44] LABS: ALKALINE PHOSPHATASE 60 U/L (45-117); BILIRUBIN,INDIRECT 0.1 mg/dL (0.0-2.0); BILIRUBIN,TOTAL 0.3 mg/dL (0.2-1.0); TOTAL PROTEIN 5.6 g/dL (6.4-8.2)
[2018-07-29 20:49] LABS: INTERNATIONAL NORMALIZED RATIO 0.99 (0.93-1.1); PROTHROMBIN TIME 10.4 Seconds (9.6-11.5)
[2018-07-29] MEDS ORDERED: DEXTROSE 5% 1,000 ML IV SCH (21:00)
[2018-07-29] MEDS: POTASSIUM CHLORIDE PMX 20MEQ/100 ML IVPB PRN (21:09)
[2018-07-29] MEDS: MAGNESIUM SULFATE PMX 2GM/50ML 50 ML IVPB PRN (21:54)
[2018-07-29] MEDS ORDERED: INSULIN REGULAR 100 UNITS/ML, 3ML VIAL IVPush ONE (23:00)
[2018-07-29] MEDS ORDERED: REGULAR INSULIN 250 UNITS in SODIUM CHLORIDE 0.9% 247.5 ML IV PRN (23:00)
[2018-07-30] MEDS ORDERED: INSULIN REGULAR 100 UNITS/ML, 3ML VIAL IVPush ONE ×5 (00:30→18:30)
[2018-07-30] MEDS: POTASSIUM CHLORIDE 20 MEQ in D5%-0.2% NACL 1,000 ML IV SCH ×2 (01:16→11:19)
[2018-07-30 02:24] LABS: BASOPHILS % (AUTO) 0 % (0-1); EOSINOPHILS % (AUTO) 0 % (1-7); LYMPHOCYTES # (AUTO) 0.37 x10^3/uL (1-3.4); LYMPHOCYTES % (AUTO) 3 % (22-44); MD NO; MEAN CORPUSCULAR HEMOGLOBIN 30.9 pg (27.0-34.8); MEAN CORPUSCULAR HGB CONC 33.2 g/dL (32.4-35.8); MEAN CORPUSCULAR VOLUME 93.1 fL (80-100); MEAN PLATELET VOLUME 8.1 fL (7.4-10.4); MONOCYTES # (AUTO) 0.51 x10^3/uL (0.2-0.8); MONOCYTES % (AUTO) 5 % (2-9); NEUTROPHILS # (AUTO) 10.51 x10^3/uL (1.8-6.8); NEUTROPHILS % (AUTO) 92 % (42-75); PLATELET COUNT 232 x10^3/uL (130-400); RED BLOOD COUNT 3.16 x10^6/uL (3.82-5.3); RED CELL DISTRIBUTION WIDTH 15.8 % (9.6-15.2)
[2018-07-30 02:35] LABS: INTERNATIONAL NORMALIZED RATIO 0.98 (0.93-1.1); PROTHROMBIN TIME 10.3 Seconds (9.6-11.5)
[2018-07-30 02:37] LABS: ALANINE AMINOTRANSFERASE 32 U/L (12-78); ALBUMIN 2.1 g/dL (3.4-5.0); ANION GAP 4 mmol/L (5-15); BILIRUBIN, DIRECT 0.1 mg/dL (0.1-0.2); CALCIUM 8.4 mg/dL (8.5-10.1); CHLORIDE 118 mmol/L (98-107); CREATININE 0.66 mg/dL (0.55-1.02)
[2018-07-30 02:41] LABS: ALKALINE PHOSPHATASE 63 U/L (45-117); BILIRUBIN,INDIRECT 0.1 mg/dL (0.0-2.0); BILIRUBIN,TOTAL 0.2 mg/dL (0.2-1.0); TOTAL PROTEIN 5.8 g/dL (6.4-8.2)
[2018-07-30 05:46] LABS: MICROSCOPIC NOT IND
[2018-07-30] MEDS ORDERED: DESMOPRESSIN 4 MCG/ML INJ IVPush ONE (06:00)
[2018-07-30] MEDS: PIPERACILLIN/TAZO 3.375 GM in SODIUM CHLORIDE 0.9% 50 ML IVPB SCH ×2 (06:04→14:40)
[2018-07-30 08:44] LABS: BASOPHILS % (AUTO) 0 % (0-1); EOSINOPHILS % (AUTO) 0 % (1-7); LYMPHOCYTES # (AUTO) 0.52 x10^3/uL (1-3.4); LYMPHOCYTES % (AUTO) 4 % (22-44); MD NO; MEAN CORPUSCULAR HEMOGLOBIN 29.8 pg (27.0-34.8); MEAN CORPUSCULAR HGB CONC 32.2 g/dL (32.4-35.8); MEAN CORPUSCULAR VOLUME 92.5 fL (80-100); MONOCYTES # (AUTO) 0.31 x10^3/uL (0.2-0.8); MONOCYTES % (AUTO) 3 % (2-9); NEUTROPHILS # (AUTO) 11.59 x10^3/uL (1.8-6.8); NEUTROPHILS % (AUTO) 93 % (42-75); PLATELET COUNT 239 x10^3/uL (130-400); RED BLOOD COUNT 3.11 x10^6/uL (3.82-5.3); RED CELL DISTRIBUTION WIDTH 15.6 % (9.6-15.2)
[2018-07-30 08:47] LABS: CULTURE INDICATED? NO; MICROSCOPIC NOT IND
[2018-07-30 08:52] LABS: INTERNATIONAL NORMALIZED RATIO 0.98 (0.93-1.1); PROTHROMBIN TIME 10.3 Seconds (9.6-11.5)
[2018-07-30 08:53] LABS: ALANINE AMINOTRANSFERASE 29 U/L (12-78); ANION GAP 4 mmol/L (5-15); CALCIUM 8.4 mg/dL (8.5-10.1); CHLORIDE 119 mmol/L (98-107)
[2018-07-30 08:59] LABS: ALKALINE PHOSPHATASE 53 U/L (45-117); BILIRUBIN,TOTAL 0.2 mg/dL (0.2-1.0); CREATININE 0.59 mg/dL (0.55-1.02); TOTAL PROTEIN 5.8 g/dL (6.4-8.2)
[2018-07-30 09:00] LABS: BILIRUBIN, DIRECT < 0.1 mg/dL (0.1-0.2); BILIRUBIN,INDIRECT 0.1 mg/dL (0.0-2.0)
[2018-07-30] MEDS ORDERED: ESOMEPRAZOLE 40 MG IV IVPush SCH (09:00)
[2018-07-30] MEDS: POTASSIUM CHLORIDE PMX 20MEQ/100 ML IVPB PRN (09:58)
[2018-07-30] MEDS: CALCIUM CHLORIDE 13.6 MEQ in SODIUM CHLORIDE 0.9% 50 ML IV PRN ×3 (09:58→18:58)
[2018-07-30] MEDS: LEVOTHYROXINE 200 MCG in SODIUM CHLORIDE 0.9% 500 ML IV SCH (11:19)
[2018-07-30] MEDS: DEXTROSE 5% IV SCH (14:25)
[2018-07-30] MEDS: METHYLPREDNISOLONE SOD SUCC IV SCH (14:25)
[2018-07-30 14:41] LABS: INTERNATIONAL NORMALIZED RATIO 0.97 (0.93-1.1); PROTHROMBIN TIME 10.2 Seconds (9.6-11.5)
[2018-07-30 14:42] LABS: ALANINE AMINOTRANSFERASE 29 U/L (12-78); ALBUMIN 2.1 g/dL (3.4-5.0); ANION GAP 6 mmol/L (5-15); CHLORIDE 116 mmol/L (98-107); CREATININE 0.62 mg/dL (0.55-1.02)
[2018-07-30 14:43] LABS: BILIRUBIN, DIRECT < 0.1 mg/dL (0.1-0.2)
[2018-07-30 14:47] LABS: ALKALINE PHOSPHATASE 64 U/L (45-117); BILIRUBIN,INDIRECT 0.2 mg/dL (0.0-2.0); BILIRUBIN,TOTAL 0.3 mg/dL (0.2-1.0); TROPONIN I 0.999 ng/mL (0.000-0.045)
[2018-07-30 14:54] LABS: MEAN CORPUSCULAR HEMOGLOBIN 30.8 pg (27.0-34.8); MEAN CORPUSCULAR HGB CONC 33.1 g/dL (32.4-35.8); MEAN CORPUSCULAR VOLUME 93.1 fL (80-100); MEAN PLATELET VOLUME 8.4 fL (7.4-10.4); PLATELET COUNT 259 x10^3/uL (130-400); RED BLOOD COUNT 3.07 x10^6/uL (3.82-5.3); RED CELL DISTRIBUTION WIDTH 15.6 % (9.6-15.2)
[2018-07-30 15:19] LABS: BASOPHILS % (AUTO) 0 % (0-1); EOSINOPHILS % (AUTO) 0 % (1-7); LYMPHOCYTES % (AUTO) 4 % (22-44); MD SCAN; MONOCYTES # (AUTO) 0.88 x10^3/uL (0.2-0.8); MONOCYTES % (AUTO) 6 % (2-9); NEUTROPHILS # (AUTO) 14.43 x10^3/uL (1.8-6.8); NEUTROPHILS % (AUTO) 90 % (42-75)
[2018-07-30 18:31] LABS: MEAN CORPUSCULAR HEMOGLOBIN 30.8 pg (27.0-34.8); MEAN CORPUSCULAR HGB CONC 32.9 g/dL (32.4-35.8); MEAN CORPUSCULAR VOLUME 93.7 fL (80-100); MEAN PLATELET VOLUME 8.5 fL (7.4-10.4); PLATELET COUNT 280 x10^3/uL (130-400); RED BLOOD COUNT 3.33 x10^6/uL (3.82-5.3); RED CELL DISTRIBUTION WIDTH 15.7 % (9.6-15.2)
[2018-07-30 18:38] LABS: INTERNATIONAL NORMALIZED RATIO 1.01 (0.93-1.1); PROTHROMBIN TIME 10.6 Seconds (9.6-11.5)
[2018-07-30 18:40] LABS: ALANINE AMINOTRANSFERASE 28 U/L (12-78); ALBUMIN 2.2 g/dL (3.4-5.0); ANION GAP 6 mmol/L (5-15); BILIRUBIN, DIRECT 0.2 mg/dL (0.1-0.2); CALCIUM 9.5 mg/dL (8.5-10.1); CHLORIDE 115 mmol/L (98-107); CREATININE 0.68 mg/dL (0.55-1.02)
[2018-07-30 18:44] LABS: ALKALINE PHOSPHATASE 71 U/L (45-117); BILIRUBIN,INDIRECT 0.3 mg/dL (0.0-2.0); BILIRUBIN,TOTAL 0.5 mg/dL (0.2-1.0); TOTAL PROTEIN 6.2 g/dL (6.4-8.2); TROPONIN I 0.995 ng/mL (0.000-0.045)
[2018-07-30 18:51] LABS: BASOPHILS % (AUTO) 0 % (0-1); EOSINOPHILS % (AUTO) 0 % (1-7); LYMPHOCYTES # (AUTO) 0.53 x10^3/uL (1-3.4); LYMPHOCYTES % (AUTO) 3 % (22-44); MD SCAN; MONOCYTES # (AUTO) 0.56 x10^3/uL (0.2-0.8); MONOCYTES % (AUTO) 3 % (2-9); NEUTROPHILS # (AUTO) 17.67 x10^3/uL (1.8-6.8); NEUTROPHILS % (AUTO) 94 % (42-75)
[2018-07-30] MEDS: MAGNESIUM SULFATE PMX 2GM/50ML 50 ML IVPB PRN (18:58)
[2018-07-30 19:05] LABS: CULTURE INDICATED? NO; MICROSCOPIC NOT IND
[2018-07-30] MEDS ORDERED: ROCURONIUM 10MG/ML,5ML ONE (20:49)
== END 2018-07-31 03:33 | disposition expired | DRG 166 ==
LOC: CCU 09:46 → OUT 09:46 → CCU 09:47 → OUT 13:52 → CCU 13:52 → OUT 07-29 09:53 → CCU 07-29 09:54 → UNDOADMIN 07-29 09:54
PROVIDERS: ADMIT Emergency Medicine; ATTEND Emergency Medicine
PROC: 0B9J8ZZ Drainage of Left Lower Lung Lobe, Via Natural or Artificial Opening Endoscopic (ICD-10-PCS; principal; 2018-07-29)
PROC: 0B9C8ZZ Drainage of Right Upper Lung Lobe, Via Natural or Artificial Opening Endoscopic (ICD-10-PCS; 2018-07-29)
PROC: 0B9F8ZZ Drainage of Right Lower Lung Lobe, Via Natural or Artificial Opening Endoscopic (ICD-10-PCS; 2018-07-29)
PROC: 5A1945Z Respiratory Ventilation, 24-96 Consecutive Hours (ICD-10-PCS; 2018-07-29)
PROC: 0BH17EZ Insertion of Endotracheal Airway into Trachea, Via Natural or Artificial Opening (ICD-10-PCS; 2018-07-29)
PROC: 0T9B70Z Drainage of Bladder with Drainage Device, Via Natural or Artificial Opening (ICD-10-PCS; 2018-07-29)
DX: J96.01 Acute respiratory failure with hypoxia (principal); I50.31 Acute diastolic (congestive) heart failure; I21.4 Non-ST elevation (NSTEMI) myocardial infarction; J18.1 Lobar pneumonia, unspecified organism; N39.0 Urinary tract infection, site not specified; G93.1 Anoxic brain damage, not elsewhere classified; J98.11 Atelectasis; Z99.11 Dependence on respirator [ventilator] status; I49.01 Ventricular fibrillation; R57.0 Cardiogenic shock; G40.901 Epilepsy, unspecified, not intractable, with status epilepticus; I25.10 Atherosclerotic heart disease of native coronary artery without angina pectoris; I11.0 Hypertensive heart disease with heart failure; B96.20 Unspecified Escherichia coli [E. coli] as the cause of diseases classified elsewhere; R74.0 Nonspecific elevation of levels of transaminase and lactic acid dehydrogenase [LDH]; E87.5 Hyperkalemia; E83.52 Hypercalcemia; F10.20 Alcohol dependence, uncomplicated; E83.51 Hypocalcemia; E87.6 Hypokalemia; K82.8 Other specified diseases of gallbladder; Z95.5 Presence of coronary angioplasty implant and graft
CPT/HCPCS: 36415; 36600; 87400; 87806; J3490; 31624; 71045; 71250; 74176; 76705; 78606; 80048; 80053; 80076; 81001; 81003; 82040; 82150; 82247; 82248; 82330; 82436; 82803; 82962; 83036; 83605; 83690; 83735; 83930; 83935; 84100; 84133; 84300; 84478; 84484; 85025; 85610; 85730; 86803; 86850; 86900; 87015; 87040; 87070; 87086; 87102; 87116; 87205; 87206; 87220; 94003; 95813; G0378; J0171; J0696; J1650; J1815; J1953; J2250; J2543; J2597; J2704; J2930; J3480; J7070; A9521; C9898; G0475; J0360; J3475; J7040; J7050